=== PATIENT | male | born 1990 | race Two or more races ===

== ENCOUNTER 2020-10-23 07:10 | Emergency (ER) | payer MEDICAID, OTHER ==
[~2020-10-23] VITALS: Ht 165.1 cm; Wt 74.8 kg
[2020-10-23] MEDS ORDERED: cefTRIAXone 1GM/50ML D5W 50 ML IV ONE (07:15)
[2020-10-23] MEDS ORDERED: MORPHINE SULFATE 4 MG/ML SYR/VIAL IV ONE ×2 (07:15→09:30)
[2020-10-23] MEDS ORDERED: ONDANSETRON HCL 4 MG/2 ML VIAL IV ONE ×2 (07:15→09:30)
[2020-10-23] MEDS ORDERED: ONDANSETRON HCL 4 MG/2 ML VIAL ONE (07:19)
[2020-10-23] MEDS ORDERED: MORPHINE SULFATE 4 MG/ML SYR/VIAL ONE (07:19)
[2020-10-23] MEDS ORDERED: cefTRIAXone SOD 1,000 MG VL ONE (07:19)
[2020-10-23 07:36] LABS: Basophils # (auto) 0 10 ^3/uL (0-0.2); Basophils % (auto) 0.3 % (0.0-2.0); Eosinophils # (auto) 0 10 ^3/uL (0-0.8); Eosinophils % (auto) 0.3 % (0.0-7.0); Hematocrit 45.2 % (41.0-53.0); Hemoglobin 15.3 g/dL (13.5-17.5); Lymphocytes # (auto) 1.6 10 ^3/uL (0.4-5.4); Mean Corpuscular Hemoglobin 28.9 pg (28.0-32.0); Mean Corpuscular Hgb Conc. 33.8 g/dL (32.0-36.0); Mean Corpuscular Volume 85.5 fL (80.0-100.0); Monocytes % (auto) 6.6 % (0.0-12.0); Neutrophils # (auto) 11.9 10 ^3/uL (1.6-8.6); Neutrophils % (auto) 81.8 % (37.0-80.0); Nucleated Red Blood Cells % 0.1 %; Red Blood Cells 5.28 10^6/uL (4.5-5.90); Red Cell Distribution Width 13.1 % (11.8-14.3); White Blood Cell 14.5 10^3/uL (4.4-10.8)
[2020-10-23 07:57] LABS: INR 1.03 (0.9-1.15)
[2020-10-23 08:03] LABS: Potassium 3.4 mmol/L (3.5-5.1)
[2020-10-23 08:10] LABS: Albumin 3.9 g/dL (3.4-5.0); BUN/Creatinine Ratio 15.6; Bilirubin, Total 0.4 mg/dL (0.2-1.0); Calcium 8.4 mg/dL (8.5-10.1); Total Protein 7.4 g/dL (6.4-8.2)
[2020-10-23 10:44] VITALS: BP 123/62
== END 2020-10-23 10:44 | disposition short-term general hospital (02) ==
LOC: ER 07:10
DX: S72.141B Displaced intertrochanteric fracture of right femur, initial encounter for open fracture type I or II (principal); S79.921A Unspecified injury of right thigh, initial encounter; E87.6 Hypokalemia; K76.0 Fatty (change of) liver, not elsewhere classified; W34.00XA Accidental discharge from unspecified firearms or gun, initial encounter; Y93.89 Activity, other specified; Y92.89 Other specified places as the place of occurrence of the external cause; Y99.8 Other external cause status
CPT/HCPCS: 36415; 73700; 74176; 80053; 85025; 85610; 86850; 86900; 86901; 96365; 96375; 96376; 99285; J0696; J2270; J2405